=== PATIENT | female | born 1995 | race Caucasian/White ===

== ENCOUNTER 2017-06-01 22:28 | Emergency (ER) | payer SELFPAY ==
[~2017-06-01] VITALS: Ht 162.6 cm; Wt 61.8 kg
[~2017-06-01 22:28] MED LIST: MOTRIN 600600 MG/TAB PO; PERCOCET 325 MG1 TA2 PO; PRENATAL1 TA1 PO; REGLAN 10MG10 MG/TAB PO
[2017-06-01 22:57] LABS: BASO % 0.2 % (0.0-2.0); EOS # 0.1 (0.0-0.7); EOS % 0.4 % (0-4.0); GRAN # 10.9 (1.4-6.5); GRAN % 78.7 % (42.2-75.2); HEMOGLOBIN 12.3 g/dl (12.5-16.0); LYMPH # 1.9 (1.2-3.4); LYMPH % 13.9 % (20.0-51.0); MEAN CELL VOLUME 88 fl (80.0-100.0); MEAN CORPUSCULAR HEMOGLOBIN 30 pg (27.0-31.0); MEAN CORPUSCULAR HGB CONC 34 g/dl (33.0-37.0); MEAN PLATELET VOLUME 11.4 fl (7.4-10.4); MONO # 0.9 (0.1-0.6); MONO % 6.5 % (1.7-9.3); PLATELET COUNT 252 K/mm3 (130-400); RED BLOOD COUNT 4.08 M/mm3 (4.10-5.30); REDCELL DISTRIBUTION WIDTH-CV 11.8 % (11.5-14.5); WHITE BLOOD COUNT 13.9 K/mm3 (4.8-10.8)
[2017-06-01 22:59] LABS: HEMATOCRIT 35.9 % (37.0-47.0)
[2017-06-01 23:05] LABS: PH 8 (5-8); SQUAMOUS EPITHELIAL 0-2 /hpf; URINE APPEARANCE Clear; URINE BACTERIA None Seen /hpf; URINE BILIRUBIN Negative (NEGATIVE); URINE BLOOD Negative (NEGATIVE); URINE COLOR Yellow; URINE GLUCOSE Negative (NEGATIVE); URINE KETONE Negative (NEGATIVE); URINE UROBILINOGEN Negative (NEGATIVE); URINE WBC >50 /hpf
[2017-06-01 23:10] LABS: ADJUSTED CALCIUM 9.1 mg/dL (8.4-10.2); ALBUMIN 4.4 gm/dL (3.5-5.0); BILIRUBIN,TOTAL 0.7 mg/dL (0.0-1.0); C-REACTIVE PROTEIN 5.4 mg/dL (0.0-0.9); CALCIUM 9.4 mg/dL (8.4-10.2); CREATININE, serum 0.84 mg/dL (0.52-1.25); TOTAL PROTEIN 7.3 gm/dL (6.4-8.2)
[2017-06-01] MEDS ORDERED: PERCOCET 325 MG1 TA2 PO (23:50)
[2017-06-01] MEDS ORDERED: CEFTIN500 MG PO (23:50)
[2017-06-02 00:01] VITALS: BP 109/53; PULSE 90; TEMP 100.6
== END 2017-06-02 00:24 | disposition home or self-care (01) ==
LOC: COL.ER 22:28
PROVIDERS: Emergency Medicine
DX: N39.0 Urinary tract infection, site not specified (principal); R10.11 Right upper quadrant pain
CPT/HCPCS: J0696; J2405; J7030; Q9967

== ENCOUNTER 2018-05-29 17:42 | Emergency (ER) | payer MEDICAID ==
[~2018-05-29] VITALS: Ht 162.6 cm; Wt 63.6 kg
[~2018-05-29 17:42] MED LIST changes: +CEFTIN500 MG PO
[2018-05-29 17:47] VITALS: TEMP 99
[2018-05-29 18:08] LABS: COLLECTION METHOD CLEAN CATCH
[2018-05-29 18:15] LABS: PH 6 (5-8); SQUAMOUS EPITHELIAL 0-2 /hpf; URINE APPEARANCE Clear; URINE BACTERIA Rare /hpf; URINE BILIRUBIN Negative (NEGATIVE); URINE BLOOD 2+ (NEGATIVE); URINE COLOR Colorless; URINE GLUCOSE Negative (NEGATIVE); URINE KETONE Negative (NEGATIVE); URINE LEUKOCYTE ESTERASE Negative (NEGATIVE); URINE NITRATE Negative (NEGATIVE); URINE PROTEIN(semi-quant) Negative (NEGATIVE); URINE RBC None Seen /hpf; URINE UROBILINOGEN Negative (NEGATIVE)
[2018-05-29 19:27] VITALS: BP 108/71; PULSE 69
== END 2018-05-29 19:27 | disposition short-term general hospital (02) ==
LOC: COL.ER 17:42
PROVIDERS: Nurse Practitioner
DX: O46.8X2 Other antepartum hemorrhage, second trimester (principal); O99.332 Smoking (tobacco) complicating pregnancy, second trimester; F17.210 Nicotine dependence, cigarettes, uncomplicated; Z3A.18 18 weeks gestation of pregnancy

== ENCOUNTER 2018-06-04 17:34 | Emergency (ER) | payer MEDICAID ==
[~2018-06-04] VITALS: Ht 162.6 cm; Wt 56.8 kg
[2018-06-04 17:46] VITALS: TEMP 99.1
[2018-06-04 18:30] LABS: BASO % 0.2 % (0.0-2.0); EOS # 0.2 (0.0-0.7); GRAN # 14.8 (1.4-6.5); GRAN % 82.9 % (42.2-75.2); HEMOGLOBIN 10.3 g/dl (12.5-16.0); MEAN CELL VOLUME 90 fl (80.0-100.0); MEAN CORPUSCULAR HEMOGLOBIN 31 pg (27.0-31.0); MEAN CORPUSCULAR HGB CONC 34 g/dl (33.0-37.0); MEAN PLATELET VOLUME 10.7 fl (7.4-10.4); MONO # 0.8 (0.1-0.6); MONO % 4.3 % (1.7-9.3); PLATELET COUNT 283 K/mm3 (130-400); RED BLOOD COUNT 3.36 M/mm3 (4.10-5.30); REDCELL DISTRIBUTION WIDTH-CV 12.1 % (11.5-14.5)
[2018-06-04 18:34] LABS: COLLECTION METHOD CLEAN CATCH
[2018-06-04 18:36] LABS: HEMATOCRIT 30.2 % (37.0-47.0)
[2018-06-04 18:37] LABS: CALCIUM 8.5 mg/dL (8.4-10.2); CREATININE, serum 0.47 mg/dL (0.52-1.25); POTASSIUM 3.4 mmol/L (3.4-5.0)
[2018-06-04 18:47] LABS: MUCOUS Present /lpf; PH 6 (5-8); URINE APPEARANCE Hazy; URINE BACTERIA Rare /hpf; URINE BILIRUBIN Negative (NEGATIVE); URINE BLOOD 1+ (NEGATIVE); URINE COLOR Yellow; URINE GLUCOSE Negative (NEGATIVE); URINE KETONE Negative (NEGATIVE); URINE LEUKOCYTE ESTERASE Trace (NEGATIVE); URINE NITRATE Negative (NEGATIVE); URINE PROTEIN(semi-quant) 1+ (NEGATIVE); URINE RBC 0-2 /hpf
[2018-06-04] MEDS ORDERED: CEFTIN500 MG PO (19:09)
[2018-06-04 20:54] VITALS: BP 108/61; PULSE 85
== END 2018-06-04 20:55 | disposition home or self-care (01) ==
LOC: COL.ER 17:34
PROVIDERS: Emergency Medicine
DX: O23.92 Unspecified genitourinary tract infection in pregnancy, second trimester (principal); Z3A.19 19 weeks gestation of pregnancy
CPT/HCPCS: J0696; J7030

== ENCOUNTER 2020-06-27 22:50 | Outpatient (CLI) | payer BC, MEDICAID ==
[~2020-06-27] VITALS: Ht 162.6 cm; Wt 80.2 kg
--- NOTE | 2020-06-27 22:50 | NUR ---
Ambulatory to unit for assessment of labor, accompanied by significant other. Oriented to room, monitor, plan of care. Pt reports contractions started one hour ago.
[2020-06-27 23:11] VITALS: BP 118/74; PULSE 109; TEMP 98.4
[2020-06-28] VITALS: BP 90/50; PULSE 93
--- NOTE | 2020-06-28 | NUR ---
repeat SVE with no changes noted.
[2020-07-02] MEDS ORDERED: NORCO 325 MG-51 TAB PO (08:15)
[2020-07-02] MEDS ORDERED: IBU600 MG PO (08:15)
== END 2020-06-28 00:10 | disposition home or self-care (01) ==
LOC: LDRO 22:50
DX: O26.893 Other specified pregnancy related conditions, third trimester (principal); Z3A.40 40 weeks gestation of pregnancy